=== PATIENT | female | born 1950 | race Caucasian/White ===

== ENCOUNTER → 2016-11-02 | Outpatient (CLI) | payer MEDICARE, OTHER | END | disposition home or self-care (01) | LOC: CDC 09:47 | DX: Z01.810 Encounter for preprocedural cardiovascular examination (principal); R00.0 Tachycardia, unspecified; I45.9 Conduction disorder, unspecified; R94.31 Abnormal electrocardiogram [ECG] [EKG] | CPT/HCPCS: 93000 ==

== ENCOUNTER 2018-01-24 15:16 | Emergency (ER) | payer OTHER ==
[~2018-01-24] VITALS: Ht 111.8 cm; Wt 19.8 kg
[2018-01-24 16:25] LABS: HEMATOCRIT 39.7 % (36.0-46.0); HEMOGLOBIN 13.6 G/DL (11.9-15.5); MCH 32.6 PG (29.0-34.0); MCHC 34.3 G/DL (30.0-36.0); MCV 95.2 FL (83-99); PLATELET COUNT 234 K/uL (156-360); RBC DIS.WIDTH-CV 13.8 % (11.8-14.6); RED BLOOD COUNT 4.17 M/uL (3.80-5.20); WHITE BLOOD COUNT 6.1 K/uL (4.1-10.2)
[2018-01-24 16:36] LABS: CHLORIDE 106 mEq/L (99-109); POTASSIUM 3.5 mEq/L (3.7-5.4); SODIUM 140 mEq/L (136-147)
[2018-01-24 16:37] LABS: GLUCOSE 98 mg/dL (70-99)
[2018-01-24 16:41] LABS: CREATININE 0.6 mg/dL (0.6-1.3); GFR ESTIMATE (CALCULATED) > 59 mL/min/
[2018-01-24 16:42] LABS: UREA NITROGEN (BUN) 12 mg/dL (9-23)
[2018-01-24 16:47] LABS: TROP-I INTERPRETATION NEGATIVE; TROPONIN-I < 0.01 ng/mL (0.0-0.30)
[2018-01-24 17:30] VITALS: BP 97/66
[2018-01-24 18:19] LABS: APPEARANCE CLOUDY ((CLEAR)); COLOR YELLOW ((YELLOW)); SPECIFIC GRAVITY 1.015 (1.000-1.030)
[2018-01-24 18:20] LABS: BILIRUBIN NEGATIVE; BLOOD NEGATIVE; GLUCOSE (STRIP) NEGATIVE; KETONES NEGATIVE; LEUKOCYTES MODERATE; NITRITE POSITIVE; PH, URINE 6.5 (5-8); PROTEIN (STRIP) NEGATIVE; UROBILINOGEN 0.2 MG/DL (0.2-1.0)
[2018-01-24 18:28] LABS: BACTERIA 2+ /HPF; EPITHELIAL CELLS 2+ /HPF; MUCUS RARE /LPF; RED BLOOD CELLS 0-5 /HPF (0-5)
[2018-01-24] MEDS ORDERED: CIPRO500 MG PO (18:45)
== END 2018-01-24 20:13 | disposition home or self-care (01) ==
LOC: EME 15:16
PROVIDERS: Emergency Medicine
DX: N39.0 Urinary tract infection, site not specified (principal); S01.311A Laceration without foreign body of right ear, initial encounter; W45.8XXA Other foreign body or object entering through skin, initial encounter; H54.7 Unspecified visual loss
CPT/HCPCS: 80048; 81003; 84484; 85027; 87077; 87086; 87186; 99281; 99284